=== PATIENT | female | born 1995 | race Hispanic/Latino ===

== ENCOUNTER 2018-11-04 05:47 | Emergency (ER) | payer MEDICAID, OTHER ==
[2018-11-04] MEDS ORDERED: DiphenhydrAMINE HCL 50 MG/ML VIAL ONE (06:45)
[2018-11-04] MEDS ORDERED: FAMOTIDINE 20MG TAB 20 MG TAB ONE (06:45)
[2018-11-04] MEDS ORDERED: DEXAMETHASONE SOD PHOSPHATE 10MG/ML 1ML VIAL ONE (06:45)
[2018-11-04] MEDS ORDERED: ALBUTEROL SULFATE 0.083% 2.5 MG/3 ML INH IH ONE (06:54)
== END 2018-11-04 07:52 | disposition home or self-care (01) ==
LOC: EDH 05:47
DX: L50.0 Allergic urticaria (principal); R22.0 Localized swelling, mass and lump, head; Z90.49 Acquired absence of other specified parts of digestive tract
CPT/HCPCS: 94640; 96372 ×2; 99284; J1100; J1200

== ENCOUNTER 2021-04-27 14:51 | Emergency (ER) | payer MEDICAID ==
[~2021-04-27] VITALS: Ht 152.4 cm; Wt 65.8 kg
[2021-04-27 15:17] VITALS: BP 111/72
[2021-04-27] MEDS ORDERED: ESOM40CA54 PO (15:59)
== END 2021-04-27 16:20 | disposition home or self-care (01) ==
LOC: EDH 14:51
DX: B34.9 Viral infection, unspecified (principal); Z20.822 Contact with and (suspected) exposure to COVID-19
CPT/HCPCS: 87635; 87804 ×2; 87880; 99283; C9803

== ENCOUNTER 2023-03-16 09:10 | Day surgery (SDC) | payer MEDICAID ==
[2023-03-13 14:03] VITALS: BP 118/67; PULSE 65; RESP 18
[~2023-03-16] VITALS: Ht 152.4 cm; Wt 54.9 kg
[2023-03-16] VITALS (12 sets, daily range): BP systolic 109–120; BP diastolic 64–77; PULSE 70–81; RESP 15–17
[~2023-03-16 09:10] MED LIST: NORE0.3513 PO
[2023-03-16] MEDS ORDERED: IOHEXOL-350 50ML VIAL IV ONE (10:09)
[2023-03-16] MEDS ORDERED: PROPOFOL 10 MG/ML 20ML VIAL IV ONE (11:01)
[2023-03-16] MEDS ORDERED: SUCCINYLCHOLINE CHLORIDE 20 MG/ML 10 ML VIAL ONE (11:02)
[2023-03-16] MEDS ORDERED: FENTANYL CITRATE PF 50 MCG/1 ML 2ML VIAL ONE (11:02)
[2023-03-16] MEDS ORDERED: GLYCOPYRROLATE 1 MG/5 ML SYRINGE ONE (11:03)
[2023-03-16] MEDS ORDERED: ROCURONIUM BROMIDE 10MG/1ML 5ML VL ONE (11:04)
[2023-03-16] MEDS ORDERED: NEOSTIGMINE 5MG/5ML SYR IV ONE (11:32)
[2023-03-16] MEDS ORDERED: LIDOCAINE PF 100MG/5ML (2%) SYRINGE 5ML ONE (11:37)
== END 2023-03-16 13:40 | disposition home or self-care (01) ==
LOC: ENDO 09:10 → DAH 09:10 → ENDO 13:40
PROVIDERS: ATTEND Internal Medicine
DX: T85.590A Other mechanical complication of bile duct prosthesis, initial encounter (principal); K80.70 Calculus of gallbladder and bile duct without cholecystitis without obstruction; F41.9 Anxiety disorder, unspecified; F32.A Depression, unspecified; Z79.899 Other long term (current) drug therapy; Z79.01 Long term (current) use of anticoagulants; Z98.890 Other specified postprocedural states; Z90.49 Acquired absence of other specified parts of digestive tract; Z98.891 History of uterine scar from previous surgery; Y83.8 Other surgical procedures as the cause of abnormal reaction of the patient, or of later complication, without mention of misadventure at the time of the procedure
CPT/HCPCS: 43264; 81025; 43275; 74328; J3010; J3490 ×4; J2710; J0330; Q9967; A4657; A7002; A4663; C1769; C1773; A4620; A4215 ×2; A4223; A4222; A4221; A4216; J7030; A4606; 74330; J2001; J2704